=== PATIENT | female | born 1975 | race Caucasian/White ===

== ENCOUNTER 2019-02-15 12:15 | Emergency (ER) | payer OTHER ==
[~2019-02-15] VITALS: Ht 152.4 cm; Wt 78.0 kg
[2019-02-15] MEDS ORDERED: VENTOLIN HFA18 GM (12:49)
[2019-02-15] MEDS ORDERED: CLONAZEPAM0.5 MG PO (19:06)
== END 2019-02-15 19:14 | disposition home or self-care (01) ==
LOC: ER 12:15 → CPU-OBS 12:23 → ER 19:14
DX: R07.89 Other chest pain (principal)
CPT/HCPCS: G0378; G0379; 93005